=== PATIENT | female | born 2000 | race African-American/Black ===

== ENCOUNTER 2019-12-15 09:49 | Observation (INO) | payer BC ==
[~2019-12-15] VITALS: Ht 162.6 cm; Wt 92.5 kg
== END 2019-12-15 12:15 | disposition home or self-care (01) ==
LOC: 8 EST LDRP 09:49
PROVIDERS: ADMIT Specialist; ATTEND Specialist
DX: O36.8130 Decreased fetal movements, third trimester, not applicable or unspecified (principal); Z3A.30 30 weeks gestation of pregnancy
CPT/HCPCS: 76805; 76818; 99281; G0378

== ENCOUNTER 2020-01-04 11:21 | Observation (INO) | payer BC ==
[~2020-01-04] VITALS: Ht 162.6 cm; Wt 97.1 kg
[2020-01-04] MEDS ORDERED: FERR-71 MT (11:49)
[2020-01-04] MEDS ORDERED: PNV1TABL76 MT (11:49)
[2020-01-04] MEDS ORDERED: LACTATED RINGERS 1,000 ML IV SCH ×2 (11:58→12:00)
== END 2020-01-04 14:20 | disposition home or self-care (01) ==
LOC: 8 EST LDRP 11:21
PROVIDERS: ADMIT Specialist; ATTEND Specialist
DX: O42.92 Full-term premature rupture of membranes, unspecified as to length of time between rupture and onset of labor (principal); Z3A.41 41 weeks gestation of pregnancy
CPT/HCPCS: 76805; 76818; 99281; G0378

== ENCOUNTER 2021-12-07 06:30 | Inpatient (IN) | payer MEDICAID ==
[~2021-12-07] VITALS: Ht 170.2 cm; Wt 95.3 kg
[~2021-12-07 06:30] MED LIST: FERR-71 MT; PNV1TABL76 MT
[2021-12-07] MEDS ORDERED: LACTATED RINGERS 1,000 ML IV SCH ×2 (07:15→07:30)
[2021-12-07] MEDS ORDERED: NALOXONE HCL 0.4 MG/ML 1ML VIAL IM PRN (07:15)
[2021-12-07] MEDS ORDERED: DEXT 5%/LR + PITOCIN 20UNITS/L 1,000 ML IV SCH ×2 (07:15→13:30)
[2021-12-07] MEDS ORDERED: METHYLERGONOVINE MALEATE 0.2 MG/ML IM PRN ×2 (07:15→13:30)
[2021-12-07] MEDS ORDERED: LIDOCAINE HCL 1% 20ML VIAL (Pyxis) INJ INFIL SCH (07:15)
[2021-12-07] MEDS ORDERED: CARBOPROST TROMETHAMINE 250 MCG/ML AMPUL IM PRN (07:15)
[2021-12-07] MEDS ORDERED: PENICILLIN G POTASSIUM 5 MMU in DEXT 5% WATER 100 ML IV SCH (07:30)
[2021-12-07 07:50] LABS: BASOPHILS % 0.5 % (0.0-2.0); EOSINOPHILS % 0.3 % (0.0-5.0); HEMATOCRIT. 34.5 % (36.0-48.0); HEMOGLOBIN. 11.5 g/dL (12.0-16.0); LYMPHOCYTES % 15.7 % (20.0-50.0); MEAN CORPUSCULAR VOLUME 81.2 fL (81.0-99.0); MEAN PLATELET VOLUME 9.5 fl (7.4-10.4); NEUTROPHILS % 75.5 % (40.0-76.0); PLATELET 232 x1000/uL (130-400); RED BLOOD CELL COUNT 4.25 mill/uL (4.2-5.4)
[2021-12-07] MEDS: BUTORPHANOL TARTRATE 2 MG/ML VIAL IV PRN ×2 (08:04→10:23)
[2021-12-07 08:14] LABS: PARTIAL THROMBOPLASTIN TIME 26.2 sec (23.4-31.0); PROTHROMBIN TIME 10.3 sec (9.6-11.0)
[2021-12-07 08:24] LABS: HEPATITIS B SURFACE ANTIGEN NEGATIVE
[2021-12-07 09:21] LABS: CLARITY URINE CLOUDY (CLEAR); COLOR URINE YELLOW (YELLOW); KETONES URINE NEGATIVE (NEGATIVE); LEUKOCYTE ESTERASE URINE 2+ (NEGATIVE); NITRITE URINE NEGATIVE (NEGATIVE); OCCULT BLOOD URINE 2+ (NEGATIVE); PH URINE 6.5 (4.5-8.0); PROTEIN URINE NEGATIVE (NEGATIVE); SPECIFIC GRAVITY URINE 1.022 (1.005-1.030); UROBILINOGEN URINE 0.2 E.U./dL (0.2-1.0)
[2021-12-07 09:32] LABS: *AMPHETAMINES SCREEN URINE NEGATIVE (NEGATIVE); *BARBITURATES SCREEN URINE NEGATIVE (NEGATIVE); *BENZODIAZEPINES SCREEN URINE NEGATIVE (NEGATIVE)
[2021-12-07 09:33] LABS: *COCAINE SCREEN URINE NEGATIVE (NEGATIVE); CANNABINOID URINE SCREEN NEGATIVE (NEGATIVE); METHADONE URINE SCREEN NEGATIVE (NEGATIVE); OPIATES URINE SCREEN NEGATIVE (NEGATIVE); PHENCYCLIDINE URINE SCREEN NEGATIVE (NEGATIVE)
[2021-12-07] MEDS ORDERED: PENICILLIN G POTASSIUM 2.5 MMU in DEXTROSE 5% WATER 50 ML IV SCH (11:30)
[2021-12-07 13:15] VITALS: BP 117/52
[2021-12-07] MEDS ORDERED: HEMORRHOIDAL SUPP PR PRN (13:30)
[2021-12-07] MEDS ORDERED: BISACODYL 10MG SUPP PR PRN (13:30)
[2021-12-07] MEDS ORDERED: BENZOCAINE/LANOLIN/ALOE VERA SPRAY TOP PRN (13:30)
[2021-12-07] MEDS ORDERED: RHO(D) IMMUNE GLOBULIN 300 MCG/SYR IM PRN (13:30)
[2021-12-07] MEDS ORDERED: GLYCERIN/WITCH HAZEL LEAF MEDICATED PAD TOP PRN (13:30)
[2021-12-07] MEDS ORDERED: LANOLIN OINT 7GM TUBE TOP PRN (13:30)
[2021-12-07] MEDS ORDERED: IBUPROFEN 400MG TABLET PO PRN (13:30)
[2021-12-07] MEDS ORDERED: ACETAMINOPHEN WITH CODEINE 300/30MG TABLET PO PRN (13:30)
[2021-12-07 14:30] VITALS: BP 112/50
[2021-12-07 19:45] VITALS: BP 105/55
[2021-12-07] MEDS ORDERED: TETANUS, DIPHTHERIA, PERTUSSIS VAC/PF 0.5ML (>10YR OLD) IM ONE (20:15)
[2021-12-07] MEDS ORDERED: INFLUENZA VACCINE 05/PF 0.5 ML SYRINGE IM ONE (20:15)
[2021-12-07] MEDS ORDERED: DOCUSATE SODIUM 100MG CAPSULE PO SCH (21:00)
[2021-12-07] MEDS: SIMETHICONE 80MG TABLET CHEW PO SCH (21:06)
[2021-12-07] MEDS: MAGNESIUM/ALUMINUM HYDROXIDE/SIMETHICONE 30ML UDC PO SCH (21:07)
[2021-12-08 04:30] VITALS: BP 103/54
[2021-12-08] MEDS: IBUPROFEN 800MG TABLET PO PRN ×2 (04:48→18:00)
[2021-12-08 07:27] LABS: BASOPHILS % 0.4 % (0.0-2.0); EOSINOPHILS % 0.4 % (0.0-5.0); HEMATOCRIT. 29.9 % (36.0-48.0); HEMOGLOBIN. 9.9 g/dL (12.0-16.0); LYMPHOCYTES % 15.2 % (20.0-50.0); MEAN CORPUSCULAR VOLUME 81.8 fL (81.0-99.0); MEAN PLATELET VOLUME 9.5 fl (7.4-10.4); MONOCYTES % 6.8 % (2.0-8.0); NEUTROPHILS % 77.2 % (40.0-76.0); PLATELET 206 x1000/uL (130-400); RED BLOOD CELL COUNT 3.66 mill/uL (4.2-5.4); RED CELL DISTRIBUTION WIDTH 14.4 % (11.6-14.6)
[2021-12-08 07:41] VITALS: BP 94/53
[2021-12-08] MEDS: FERROUS SULFATE 325MG TABLET PO SCH ×3 (08:28→17:55)
[2021-12-08] MEDS: SIMETHICONE 80MG TABLET CHEW PO SCH ×3 (08:28→17:55)
[2021-12-08] MEDS: PRENATAL VIT/FE FUMARATE/FA TABLET PO SCH (08:28)
[2021-12-08] MEDS: MAGNESIUM/ALUMINUM HYDROXIDE/SIMETHICONE 30ML UDC PO SCH ×3 (08:28→17:54)
[2021-12-08 16:05] VITALS: BP 90/51
[2021-12-08 20:30] VITALS: BP 104/62
[2021-12-09 04:15] VITALS: BP 98/56
[2021-12-09 06:44] LABS: BASOPHILS % 0.6 % (0.0-2.0); EOSINOPHILS % 1.2 % (0.0-5.0); HEMATOCRIT. 29.8 % (36.0-48.0); HEMOGLOBIN. 10.2 g/dL (12.0-16.0); MEAN CORPUSCULAR HEMOGLOBIN 27.7 pg (28.0-32.0); MEAN CORPUSCULAR VOLUME 81.1 fL (81.0-99.0); MEAN PLATELET VOLUME 9.3 fl (7.4-10.4); MONOCYTES % 8.2 % (2.0-8.0); PLATELET 201 x1000/uL (130-400); RED BLOOD CELL COUNT 3.68 mill/uL (4.2-5.4); RED CELL DISTRIBUTION WIDTH 14.4 % (11.6-14.6)
[2021-12-09 07:40] VITALS: BP 114/51
[2021-12-09] MEDS: SIMETHICONE 80MG TABLET CHEW PO SCH (08:23)
[2021-12-09] MEDS: PRENATAL VIT/FE FUMARATE/FA TABLET PO SCH (08:23)
[2021-12-09] MEDS: FERROUS SULFATE 325MG TABLET PO SCH (08:23)
[2021-12-09] MEDS: MAGNESIUM/ALUMINUM HYDROXIDE/SIMETHICONE 30ML UDC PO SCH (08:23)
== END 2021-12-09 11:30 | disposition home or self-care (01) | DRG 560 ==
LOC: OBSVTOIN 06:30 → 8 EST LDRP 06:30 → 8EST 18:01
PROVIDERS: ADMIT Obstetrics & Gynecology; ATTEND Obstetrics & Gynecology
PROC: 10D07Z6 Extraction of Products of Conception, Vacuum, Via Natural or Artificial Opening (ICD-10-PCS; principal; 2021-12-07)
PROC: 3E0R3BZ Introduction of Anesthetic Agent into Spinal Canal, Percutaneous Approach (ICD-10-PCS; 2021-12-07)
PROC: 00HU33Z Insertion of Infusion Device into Spinal Canal, Percutaneous Approach (ICD-10-PCS; 2021-12-07)
DX: O99.02 Anemia complicating childbirth (principal); Z37.0 Single live birth; Z20.822 Contact with and (suspected) exposure to COVID-19; Z3A.39 39 weeks gestation of pregnancy
CPT/HCPCS: 36415; 80305; 81003; 85025; 86592; 86703; 86762; 86850; 86900; 87340; 87426; 90686; 90715; 99281; J0595; J2540; J2590; J3490; J7060; J7120